=== PATIENT | male | born 1950 | race African-American/Black ===

== ENCOUNTER 2022-11-29 22:48 | Emergency (ER) | payer OTHER ==
[~2022-11-29] VITALS: Ht 182.9 cm; Wt 73.0 kg
[2022-11-29 22:59] VITALS: O2SAT 98
[2022-11-30] MEDS ORDERED: LABETALOL HCL 200MG TABLET PO SCH (01:00)
[2022-11-30 02:07] LABS: CHLORIDE 106 mEq/L (98-107)
[2022-11-30 02:35] LABS: BASOPHILS % 0.7 % (0.0-2.0); EOSINOPHILS % 0.3 % (0.0-5.0); HEMATOCRIT. 45.4 % (42.0-52.0); HEMOGLOBIN. 15.1 g/dL (14.0-18.0); LYMPHOCYTES % 21.3 % (20.0-50.0); MEAN CORPUSCULAR HEMOGLOBIN 30.7 pg (28.0-32.0); MEAN CORPUSCULAR VOLUME 92.4 fL (80.0-94.0); MEAN PLATELET VOLUME 9.8 fl (7.4-10.4); MONOCYTES % 9.2 % (2.0-8.0); NEUTROPHILS % 68.5 % (40.0-76.0); PLATELET 204 x1000/uL (130-400); RED BLOOD CELL COUNT 4.91 mill/uL (4.7-6.1); RED CELL DISTRIBUTION WIDTH 15.4 % (11.6-14.6)
[2022-11-30] MEDS ORDERED: AMLO5TAB88 MT (04:36)
[2022-11-30 05:34] VITALS: BP 175/89; PULSE 56; RESP 18; TEMP 97.9
== END 2022-11-30 05:34 | disposition home or self-care (01) ==
LOC: ER 22:48
DX: I10 Essential (primary) hypertension (principal)
CPT/HCPCS: 36415; 71045; 74176; 80053; 83880; 84484; 85025; 93005; 99285